=== PATIENT | female | born 1950 | race Caucasian/White ===

== ENCOUNTER 2020-05-17 16:21 | Inpatient (IN) | payer MEDICARE ==
--- NOTE | 2020-05-17 17:02 | ED ---
General Adult HPI - General Chief complaint: Neuro Symptoms/Deficit Stated complaint: Neuro Changes Time Seen by Provider: 05/17/20 16:25 Source: patient, RN notes reviewed, old records reviewed Mode of arrival: ambulatory Limitations: no limitations - History of Present Illness Initial comments: This is a 70-year-old female who presents emergency Department with a complaint of confusion this morning. Patient states she was unable to operate herself. Patient states she had no visual disturbance she denies any weakness of any extremity she denies any numbness. Patient states she has no inability to ambulate. Patient denies any facial drooping. Patient denies speech gums. Patient states she does have diabetes, high cholesterol. Patient states symptoms started about 8:00 this morning and they were completely resolved by 9:00. Patient states since then she's had no symptoms whatsoever. Patient denies any chest pain or palpitations. Patient denies any difficulty breathing shortness of breath. Patient denies any fever chills or cough per patient denies any abdominal pain patient denies nausea vomiting diarrhea. Patient denies any headache patient denies any lightheadedness or dizziness. - Related Data Home Medications Medication Instructions Recorded Confirmed Cholecalciferol [Vitamin D3 (25 125 mcg PO DAILY@79905/17/20 05/17/20 Mcg = 1000 Iu)] Citalopram Hydrobromide 20 mg PO DAILY@79905/17/20 05/17/20 [Citalopram HBr] Elderberry (Unknown Strength) 1 tab PO DAILY@79905/17/20 05/17/20 Famotidine [Pepcid] 20 mg PO BID@799,199905/17/20 05/17/20 Levothyroxine Sodium [Synthroid] 137 mcg PO DAILY@69905/17/20 05/17/20 Losartan [Cozaar] 50 mg PO DAILY@79905/17/20 05/17/20 Meloxicam 15 mg PO DAILY@79905/17/20 05/17/20 Vitamin C + Zinc (Unknown Strength) 1 tab PO DAILY@79905/17/20 05/17/20 sitaGLIPtin PHOS/metFORMIN HCL 1 tab PO BID@0800,199905/17/20 05/17/20 [Janumet 50-500 mg Tablet] Allergies Allergy/AdvReac Type Severity Reaction Status Date / Time No Known Allergies Allergy Verified 05/17/20 17:25 Review of Systems ROS Statement: Those systems with pertinent positive or pertinent negative responses have been documented in the HPI. ROS Other: All systems not noted in ROS Statement are negative. Past Medical History Past Medical History: Diabetes Mellitus, GERD/Reflux, Osteoarthritis (OA), Renal Disease, Thyroid Disorder Additional Past Medical History / Comment(s): allergies History of Any Multi-Drug Resistant Organisms: None Reported Past Surgical History: Cholecystectomy, Hysterectomy, Orthopedic Surgery Additional Past Surgical History / Comment(s): L leg, B carpal tunnel, toe amputation, parathyroid Past Psychological History: Anxiety Smoking Status: Former smoker Past Alcohol Use History: None Reported Past Drug Use History: None Reported General Exam - General Exam Comments Initial Comments: GENERAL: Patient is well-developed and well-nourished. Patient is nontoxic and well- hydrated and is in no acute distress. ENT: Neck is soft and supple. No significant lymphadenopathy is noted. Oropharynx is clear. Moist mucous membranes. Neck has full range of motion without eliciting any pain. EYES: The sclera were anicteric and conjunctiva were pink and moist. Extraocular movements were intact and pupils were equal round and reactive to light. Eyelids were unremarkable. PULMONARY: Unlabored respirations. Good breath sounds bilaterally. No audible rales rhonchi or wheezing was noted. CARDIOVASCULAR: There is a regular rate and rhythm without any murmurs gallops or rubs. ABDOMEN: Soft and nontender with normal bowel sounds. No palpable organomegaly was noted. There is no palpable pulsatile mass. SKIN: Skin is clear with no lesions or rashes and otherwise unremarkable. NEUROLOGIC: Patient is alert and oriented x3. Cranial nerves II through XII are grossly intact. Motor and sensory are also intact. Normal speech, volume and content. Symmetrical smile. MUSCULOSKELETAL: Normal extremities with adequate strength and full range of motion. LYMPHATICS: No significant lymphadenopathy is noted PSYCHIATRIC: Normal psychiatric evaluation. Limitations: no limitations Course Vital Signs 05/17/20 05/17/20 05/17/20 16:23 16:55 17:25 Temperature 98.6 F Pulse Rate 86 76 73 Respiratory 18 18 18 Rate Blood Pressure 138/79 114/63 131/64 O2 Sat by Pulse 93 L 97 96 Oximetry Medical Decision Making - Medical Decision Making EKG shows normal sinus rhythm at 77 bpm TN interval 242 QRS is 86 QT interval 392 QTC is 443. Patient's EKG shows no ST segment elevation or depression. Chest x-ray shows no acute abnormality. CT of brain shows no acute abnormality. Patient remained without symptoms throughout her ED stay. I spoke with Dr. Virgen he agreed to admit the patient admitted the patient I wrote admitting orders - Lab Data Result diagrams: 05/17/20 16:52 05/17/20 16:52 Lab Results 05/17/20 05/17/20 05/17/20 Range/Units 16:52 16:52 16:52 WBC 4.9 (3.8-10.6) k/uL RBC 4.31 (3.80-5.40) m/uL Hgb 11.7 (11.4-16.0) gm/dL Hct 36.5 (34.0-46.0) % MCV 84.6 (80.0-100.0) fL MCH 27.0 (25.0-35.0) pg MCHC 32.0 (31.0-37.0) g/dL RDW 15.1 (11.5-15.5) % Plt Count 91 L (150-450) k/uL MPV 7.8 Neutrophils % 71 % Lymphocytes % 20 % Monocytes % 6 % Eosinophils % 2 % Basophils % 0 % Neutrophils # 3.5 (1.3-7.7) k/uL Lymphocytes # 1.0 (1.0-4.8) k/uL Monocytes # 0.3 (0-1.0) k/uL Eosinophils # 0.1 (0-0.7) k/uL Basophils # 0.0 (0-0.2) k/uL PT 10.4 (9.0-12.0) sec INR 1.0 (<1.2) APTT 20.8 L (22.0-30.0) sec Sodium 140 (137-145) mmol/L Potassium 4.4 (3.5-5.1) mmol/L Chloride 103 (98-107) mmol/L Carbon Dioxide 27 (22-30) mmol/L Anion Gap 10 mmol/L BUN 21 H (7-17) mg/dL Creatinine 0.56 (0.52-1.04) mg/dL Est GFR (CKD-EPI)AfAm >90 (>60 ml/min/1.73 sqM) Est GFR (CKD-EPI)NonAf >90 (>60 ml/min/1.73 sqM) Glucose 128 H (74-99) mg/dL Calcium 9.5 (8.4-10.2) mg/dL Total Bilirubin 1.3 (0.2-1.3) mg/dL AST 44 H (14-36) U/L ALT 43 H (4-34) U/L Alkaline Phosphatase 78 (38-126) U/L Troponin I (0.000-0.034) ng/mL Total Protein 7.3 (6.3-8.2) g/dL Albumin 4.2 (3.5-5.0) g/dL 05/17/20 Range/Units 16:52 WBC (3.8-10.6) k/uL RBC (3.80-5.40) m/uL Hgb (11.4-16.0) gm/dL Hct (34.0-46.0) % MCV (80.0-100.0) fL MCH (25.0-35.0) pg MCHC (31.0-37.0) g/dL RDW (11.5-15.5) % Plt Count (150-450) k/uL MPV Neutrophils % % Lymphocytes % % Monocytes % % Eosinophils % % Basophils % % Neutrophils # (1.3-7.7) k/uL Lymphocytes # (1.0-4.8) k/uL Monocytes # (0-1.0) k/uL Eosinophils # (0-0.7) k/uL Basophils # (0-0.2) k/uL PT (9.0-12.0) sec INR (<1.2) APTT (22.0-30.0) sec Sodium (137-145) mmol/L Potassium (3.5-5.1) mmol/L Chloride (98-107) mmol/L Carbon Dioxide (22-30) mmol/L Anion Gap mmol/L BUN (7-17) mg/dL Creatinine (0.52-1.04) mg/dL Est GFR (CKD-EPI)AfAm (>60 ml/min/1.73 sqM) Est GFR (CKD-EPI)NonAf (>60 ml/min/1.73 sqM) Glucose (74-99) mg/dL Calcium (8.4-10.2) mg/dL Total Bilirubin (0.2-1.3) mg/dL AST (14-36) U/L ALT (4-34) U/L Alkaline Phosphatase (38-126) U/L Troponin I <0.012 (0.000-0.034) ng/mL Total Protein (6.3-8.2) g/dL Albumin (3.5-5.0) g/dL Disposition Clinical Impression: Transient cerebral ischemia Disposition: ADMITTED IP TO THIS HOSP Referrals: Nonstaff,Physician [Primary Care Provider] - 1-2 days Time of Disposition: 18:04
[2020-05-17 17:10] LABS: ALT 43 U/L (4-34); AST 44 U/L (14-36); African American GFR (CKD) >90 (>60 ml/min/1.73 sqM); Albumin 4.2 g/dL (3.5-5.0); Alkaline Phosphatase 78 U/L (38-126); Anion Gap 10 mmol/L; Blood Urea Nitrogen 21 mg/dL (7-17); Calcium 9.5 mg/dL (8.4-10.2); Carbon Dioxide 27 mmol/L (22-30); Chloride 103 mmol/L (98-107); Glucose 128 mg/dL (74-99); Non-African American GFR(CKD) >90 (>60 ml/min/1.73 sqM); Potassium 4.4 mmol/L (3.5-5.1); Sodium 140 mmol/L (137-145); Total Bilirubin 1.3 mg/dL (0.2-1.3); Total Protein 7.3 g/dL (6.3-8.2)
[2020-05-17 17:19] LABS: Basophils % (A) 0 %; Eosinophils # (A) 0.1 k/uL (0-0.7); Eosinophils % (A) 2 %; HCT 36.5 % (34.0-46.0); HGB 11.7 gm/dL (11.4-16.0); Lymphocytes % (A) 20 %; MCV 84.6 fL (80.0-100.0); Mean Platelet Volume 7.8; Monocytes # (A) 0.3 k/uL (0-1.0); Monocytes % (A) 6 %; Neutrophils # (A) 3.5 k/uL (1.3-7.7); Neutrophils % (A) 71 %; Prothrombin Time 10.4 sec (9.0-12.0); RBC 4.31 m/uL (3.80-5.40); RDW 15.1 % (11.5-15.5); WBC 4.9 k/uL (3.8-10.6)
[2020-05-17 17:22] LABS: Partial Thromboplastin Time 20.8 sec (22.0-30.0)
[2020-05-17 17:28] LABS: Platelet Count 91 k/uL (150-450)
--- NOTE | 2020-05-17 17:33 | XR ---
EXAMINATION TYPE: XR chest 2V DATE OF EXAM: 05/17/2020 COMPARISON: NONE HISTORY: Confusion memory loss TECHNIQUE: FINDINGS: Heart is normal. Lungs are clear of infiltrate. There is no heart failure. There is no pleu ral effusion. Bony thorax is intact. IMPRESSION: No active cardiopulmonary disease. Normal heart.
--- NOTE | 2020-05-17 17:50 | CT ---
EXAMINATION TYPE: CT brain wo con DATE OF EXAM: 05/17/2020 COMPARISON: None HISTORY: Weakness. CT DLP: 1110.4 mGycm Automated exposure control for dose reduction was used. Ventricles have normal size. There is no mass effect nor midline shift. There is no sign of intracran ial hemorrhage. The calvarium is intact. There is no evidence of cerebral edema. IMPRESSION: Negative CT scan of the brain.
[2020-05-17] MEDS ORDERED: ASPIRIN 325 MG TAB PO STA (18:04)
[2020-05-17] MEDS ORDERED: ACETAMINOPHEN TAB 500 MG TAB PO PRN (18:38)
[2020-05-17] MEDS ORDERED: ALPRAZolam 0.25 MG TAB PO PRN (18:38)
[2020-05-17] MEDS ORDERED: TEMAZEPAM 15 MG CAP PO PRN (18:39)
[2020-05-17] MEDS ORDERED: HYDROcodone/APAP 5-325MG 1 EACH TAB PO PRN (18:39)
[2020-05-17 19:44] LABS: Appearance,Urine Cloudy (Clear); Bacteria,Urine Occasional /hpf; Bilirubin,Urine Negative (Negative); Blood,Urine Negative (Negative); Color,Urine Yellow; Glucose,Urine (UA) Negative (Negative); Ketones,Urine Negative (Negative); Leukocyte Esterase,Urine Large (Negative); Mucus,Urine Occasional /hpf; Nitrite,Urine Negative (Negative); Protein,Urine Negative (Negative); Specific Gravity,Urine 1.024 (1.001-1.035); Squamous Epithelial Cell,Urine 5 /hpf (0-4); WBC,Urine 77 /hpf (0-5)
--- NOTE | 2020-05-17 19:46 | HP ---
HISTORY AND PHYSICAL DATE OF SERVICE: 05/17/2020. CHIEF COMPLAINT: Change in mental status. HISTORY OF PRESENT ILLNESS: This 70-year-old woman with a past medical history of multiple medical problems including diabetes mellitus, GERD, DJD, history of hypothyroidism, cholecystectomy, being followed by Dr. David Akhtar in [facility], was staying in a cottage here up [place]. Because her daughters are having Covid at this time, the patient was sort of on a self isolation and was keeping check on the daughter and today the patient has tried to text her the second time and the patient was unable to do it for at least 10 minutes. The patient had some confusion and because of the difficulties, the patient came to [facility] and was admitted for further evaluation and treatment. There is no history of fever, rigors. No history of headache, loss of consciousness or seizures at this time. PAST MEDICAL HISTORY: Diabetes, GERD, DJD, history of cholecystectomy, hysterectomy and anxiety. MEDICATIONS: Medications prior to admission: Home medications are: Levothyroxine, elderberry and cholecalciferol, meloxicam, losartan, Janumet, Pepcid, Celexa. ALLERGIES: None. FAMILY HISTORY: No history of heart disease or strokes in the family. SOCIAL HISTORY: Previous history of smoking. No history of alcohol intake. REVIEW OF SYSTEMS: ENT: No diminished vision. No diminished hearing. CARDIOVASCULAR: No angina. No palpitations. RESPIRATION: No cough or hemoptysis. GI no nausea or vomiting. no dysuria or hematuria. Nervous System: As mentioned earlier. ALLERGIES/IMMUNOLOGY: No asthma or hayfever. MUSCULOSKELETAL as mentioned earlier. HEMATOLOGY/ONCOLOGY: No history of anemia. ENDOCRINE: Diabetes. CONSTITUTIONAL: As mentioned earlier. DERMATOLOGY: Negative. RHEUMATOLOGY negative. PSYCHIATRY as mentioned earlier. PHYSICAL EXAM: Patient is alert, oriented x3. The pulse is 76, blood pressure 114/60, respiration 18, temperature 98.2, pulse ox 97% on room air. HEENT is conjunctivae normal. NECK: No JVD. CARDIOVASCULAR: S1, S2 muffled. RESPIRATION: Breath sounds diminished in the bases. No rhonchi. No crackles. ABDOMEN: Soft, nontender. No mass palpable. LEGS: No edema. No swelling. NERVOUS SYSTEM: Higher functions as mentioned earlier. Cranial nerves 2nd thru 12 grossly intact. No nystagmus. No diplopia. Otherwise, moves all 4 limbs. No focal weakness. No signs of cerebellar dysfunction. SKIN: No ulcer, rash or bleeding. JOINTS: No active deforming arthropathy. LABS: WBC 4.2, hemoglobin 11.7, platelets are 91. Glucose 128. AST is 44, ALT is 43. ASSESSMENT: 1. Brief period of confusion, possible acute transient ischemic attack. 2. Thrombocytopenia. 3. Increased AST/ALT, possibly hepatitis of undetermined etiology. 4. Diabetes mellitus type 2. 5. History of gastroesophageal reflux disease. 6. Degenerative joint disease. 7. History of renal disease. 8. History of hypothyroidism. 9. History of cholecystectomy. 10.History of hysterectomy. 11.History of anxiety. 12.Obesity with body mass index of 42.3. RECOMMENDATIONS AND DISCUSSION: This 70-year-old woman who presented with multiple complex medical issues, we will monitor the patient closely, continue the current medications, management and symptomatic treatment. I recommend antiplatelet agents, complete neurovascular workup, neuro checks and as well as neurology evaluation. Initial brain CT, which was reviewed personally by me showed no acute abnormalities. The prognosis guarded because of multiple complex medical issues. Further recommendations to follow. MMODL / IJN: [id number] /
[2020-05-17 20:28] LABS: Glucose,Whole Blood 97 mg/dL (75-99)
[2020-05-17] MEDS: ATORVASTATIN 40 MG TAB PO SCH (20:31)
[2020-05-17] MEDS: HEPARIN SODIUM,PORCINE 5,000 UNIT/ML 1 ML VIAL SQ SCH (20:32)
[2020-05-17] MEDS: metFORMIN 500 MG TAB PO SCH (20:32)
[2020-05-18 07:58] LABS: Glucose,Whole Blood 117 mg/dL (75-99)
[2020-05-18] MEDS: LEVOTHYROXINE 137 MCG TAB PO SCH (07:59)
[2020-05-18] MEDS: MELOXICAM 7.5 MG TAB PO SCH (07:59)
[2020-05-18] MEDS: ASCORBIC ACID 500 MG TAB PO SCH (08:00)
[2020-05-18] MEDS: PANTOPRAZOLE 40 MG TABLET PO SCH (08:00)
[2020-05-18] MEDS: LINAGLIPTIN 5 MG TABLET PO SCH (08:00)
[2020-05-18] MEDS: metFORMIN 500 MG TAB PO SCH ×2 (08:00→20:43)
[2020-05-18] MEDS: CHOLECALCIFEROL 25 MCG (1000 IU) TABLET PO SCH (08:00)
[2020-05-18] MEDS: CITALOPRAM HYDROBROMIDE 20 MG TAB PO SCH (08:00)
[2020-05-18] MEDS: ZINC SULFATE 220 MG CAP PO SCH (08:00)
[2020-05-18] MEDS: LOSARTAN 50 MG TAB PO SCH (08:00)
[2020-05-18] MEDS: ASPIRIN 325 MG TAB PO SCH (09:03)
[2020-05-18] MEDS: HEPARIN SODIUM,PORCINE 5,000 UNIT/ML 1 ML VIAL SQ SCH (09:03)
[2020-05-18 09:44] LABS: African American GFR (CKD) 112.1 (60.0-200.0); Albumin/Globulin Ratio 2.22 (1.60-3.17); Chol/HDL Ratio 2.67; Globulin 1.8 g/dL (1.6-3.3); LDL Cholesterol,Calculated 75.2 mg/dL (0.0-131.0); Non-African American GFR(CKD) 96.7 (60.0-200.0); Potassium 3.8 mmol/L (3.5-5.5); Total Bilirubin 1.5 mg/dL (0.3-1.2); Total Protein 5.8 g/dL (6.2-8.2); VLDL Calculation 19.8 mg/dL (5.00-40.00)
--- NOTE | 2020-05-18 10:35 | P.CNNES ---
History of Present Illness Consult date: 05/18/20 Requesting physician: Satinder Cannon Reason for Consult: confusion History of Present Illness: This is a 70-year-old woman with medical history of diabetes mellitus, hypothyroidism, osteoarthritis that presented to the emergency department on 05/17/2020 for an episode of confusion. Patient stated that that she was con fused early in the morning at around 8am on 05/17/2020 and that could not operate her full and lasting for 15-20 minutes. She didn't know how to dial or operate the phone. Then after 15-20 minutes the she is back to her normal state. During her confusion states she had a mild headache over the left frontal but she stated it was 2 out of 10 and the nothing significant. She denied any photophobia photophobia and nausea or vomiting. She denies any focal weakness during the episode, and any numbness or tingling, difficulty swallowing, difficulty getting her words out or ringing in the ears. She denies of any fevers, any cough or any chills. She stated that the she resides in [place] and she is visiting her daughter here in [place]. She said that she was exposed a friend in the last 1 week and a half to someone that has Covid-19 positive. But the patient feels she has no cough or chest pain or shortness of breath. Patient stated that during the episode of the confusion the she did not miss her breakfast since she is diabetic but she was not having any sweats. Note the patient denies any history of stroke or transient ischemic attack or seizure in the past that. She is not on any antiplatelet or statin. Workup in the hospital consisted of: Initial vitals his blood pressure of 138/79, heart rate of 86, respiratory rate of 18, temperature of 98.6 Fahrenheit and pulse ox of 93 by percent at room air. Since the patient has been the hospital the patient has been afebrile. CT of the head is reported as negative CT scan of the brain. EKG is reported as normal sinus rhythm. Left axis deviation. Inferior infarct, age undetermined. Abnormal EKG. Patient white blood cell is 4.9 which is within normal limits. The platelet is 91 which is low. Initial serum glucose is 128. AST is 44 and the ALT is 43 which is at which is slightly abnormal. Urinalysis shows that it's cloudy, leukocyte esterase was large, urine white blood cell is 77 and urine bacteria as occasional was seems is suggestive of urinary tract infection. Jeffery virus PCR is positive Review of Systems Review of system: The 12 point system was reviewed and apparent positive and negative per HPI. Past Medical History Past Medical History: Diabetes Mellitus, GERD/Reflux, Osteoarthritis (OA), Renal Disease, Thyroid Disorder Additional Past Medical History / Comment(s): allergies History of Any Multi-Drug Resistant Organisms: None Reported Past Surgical History: Cholecystectomy, Hysterectomy, Orthopedic Surgery Additional Past Surgical History / Comment(s): L leg, B carpal tunnel, toe amputation, parathyroid Past Anesthesia/Blood Transfusion Reactions: No Reported Reaction Past Psychological History: Anxiety, Depression Smoking Status: Former smoker Past Alcohol Use History: None Reported Past Drug Use History: None Reported Medications and Allergies Home Medications Medication Instructions Recorded Confirmed Type Cholecalciferol [Vitamin D3 (25 125 mcg PO DAILY@0800 05/17/20 05/17/20 History Mcg = 1000 Iu)] Citalopram Hydrobromide 20 mg PO DAILY@79905/17/20 05/17/20 History [Citalopram HBr] Elderberry (Unknown Strength) 1 tab PO DAILY@79905/17/20 05/17/20 History Famotidine [Pepcid] 20 mg PO BID@799,199905/17/20 05/17/20 History Levothyroxine Sodium [Synthroid] 137 mcg PO DAILY@69905/17/20 05/17/20 History Losartan [Cozaar] 50 mg PO DAILY@0805/17/20 05/17/20 History Meloxicam 15 mg PO DAILY@79905/17/20 05/17/20 History Vitamin C + Zinc (Unknown Strength) 1 tab PO DAILY@79905/17/20 05/17/20 History sitaGLIPtin PHOS/metFORMIN HCL 1 tab PO BID@799,199905/17/20 05/17/20 History [Janumet 50-500 mg Tablet] Allergies Allergy/AdvReac Type Severity Reaction Status Date / Time No Known Allergies Allergy Verified 05/17/20 17:25 Physical Examination - Vital Signs Vital Signs: Vital Signs Temp Pulse Pulse Resp BP BP Pulse Ox 05/18/20 07:51 98.1 F 84 14 128/75 94 L 02/02/21 05:30 97.7 F 81 15 118/67 96 05/18/20 03:05 97.7 F 81 15 105/65 96 05/18/20 01:05 97.7 F 73 15 101/53 96 05/17/20 23:05 97.4 F L 74 16 110/67 96 05/17/20 20:29 98.0 F 77 16 144/79 95 05/17/20 19:04 97.8 F 76 18 133/60 99 05/17/20 18:05 71 18 122/72 97 05/17/20 17:25 73 18 131/64 96 05/17/20 16:55 76 18 114/63 97 05/17/20 16:23 98.6 F 86 18 138/79 93 L Intake and Output 05/17/20 05/18/20 05/18/20 22:59 06:59 14:59 Other: Voiding Method Toilet # Voids 2 Weight 118.841 kg GENERAL: The patient is lying in bed and is not in acute distress. CHEST: The heart rate is regular rate rhythm. No murmurs to auscultation. No carotid bruit bilaterally. LUNG: Clear to auscultation bilaterally no wheezing noted throughout. Not labored breathing. ABDOMEN/GI: Bowel sounds present in all 4 quadrants. No tenderness to palpation throughout. NEUROLOGICAL: Higher mental function: The patient is awake, alert, oriented to self, place and time. Patient is following commands. No aphasia and no neglect. Cranial nerves: The pupils are round, equal and reactive to light and accommodation. Visual james are full to confrontation throughout. Extraocular movement is intact no nystagmus is noted. Facial sensation is normal to touch throughout. The facial strength is normal throughout. Hearing is normal srinivasa aterally to hand rub. Tongue is midline and moved [id number] without any difficulty. No dysarthria is noted. Shoulder shrug is normal bilaterally. Motor: The strength is 5 over 5 throughout. Normal tone and bulk. Cerebellum: Normal finger to nose heel to chin bilaterally. Sensation: Sensation is normal to touch throughout. Reflexes (right/left): 2+ throughout. Plantars are downgoing bilaterally. Results Coagulation study: PT is 10.4, INR 1.0 and PTT of 20.8. - Laboratory Findings CBC and BMP: 05/17/20 16:52 05/18/20 04:29 Abnormal Lab Findings: Abnormal Labs 05/17/20 05/17/20 05/17/20 16:52 16:52 16:52 Plt Count 91 L APTT 20.8 L BUN 21 H Glucose 128 H POC Glucose (mg/dL) AST 44 H ALT 43 H Urine Appearance Ur Leukocyte Esterase Urine WBC Ur Squamous Epith Cells Urine Bacteria Urine Mucus Coronavirus (PCR) 05/17/20 05/17/20 05/18/20 19:18 19:25 07:56 Plt Count APTT BUN Glucose POC Glucose (mg/dL) 117 H AST ALT Urine Appearance Cloudy H Ur Leukocyte Esterase Large H Urine WBC 77 H Ur Squamous Epith Cells 5 H Urine Bacteria Occasional H Urine Mucus Occasional H Coronavirus (PCR) Detected A Assessment and Plan Assessment: This is a 70-year-old woman that presented to the emergency department on 05/17/2020 for an episode of transient and confusion lasting 15-20 minutes on 05/17/2020 in the morning (having difficulty operating her phone) wihtout any other neurological problmes. Transient episode of confusion: Unsure exactly etiology. It could be due to the underlying patient urinary tract infection as well as COVID-19 infection (COVID- 19 positive) as well as component of toxic metabolic encephalopathy from elevated AST and ALT. Acute urinary tract infection Acute Covid 19 positive Thrombocytopenia Diabetes mellitus Hypothyroidism Osteoarthritis Plan: CT of the head is reported as negative CT scan of the brain. The patient was started on aspirin 325 daily by the ED team as well as was started on Lipitor 40 mg by the primary team. I cannot definitely state this was a transient ischemic attack. Transient confusion could be due to multiple effect and one of the possibility is underlying infection to such as urinary tra ct infection or a covid-19 infection. Lipid panel is ordered by the ED team I ordered carotid duplex and 2-D echo. Cannot get MRI because of the patient covert 19 positive. I ordered TSH, vitamin B12 and folate. I also ordered ammonia level. I ordered routine EEG and will not start anti-epileptic drug unless there is epileptiform discharges or seizure on EEG. Physical therapy, Occupation therapy, speech therapy are consulted by ED team. Defer the rest of the medical management to the primary team. I notified the patient upon discharge I would like her to follow-up with a neurologist within 2 weeks as outpatient. Thank you for the consultation. Randal Garland MD Neuro-Hospitalist Time with Patient: Greater than 30
[2020-05-18 10:39] LABS: Basophils # (A) 0.01 X 10*3/uL (0.00-0.10); Basophils % (A) 0.3 %; Eosinophils # (A) 0.07 X 10*3/uL (0.04-0.35); Eosinophils % (A) 2.2 %; HGB 9.9 g/dL (12.0-15.0); Lymphocytes % (A) 33.8 %; MCH 26.9 pg (27.0-32.0); MCV 89.7 fL (80.0-97.0); Mean Platelet Volume 11.4 fL (9.5-12.2); Monocytes # (A) 0.28 X 10*3/uL (0.20-1.00); Monocytes % (A) 8.6 %; Neutrophils # (A) 1.78 X 10*3/uL (1.80-7.70); Neutrophils % (A) 54.8 %; Platelet Count 89 X 10*3/uL (140-440); RBC 3.68 X 10*6/uL (4.10-5.20); RDW 14.7 % (11.5-14.5); WBC 3.25 X 10*3/uL (4.50-10.00)
[2020-05-18] MEDS: ENOXAPARIN 40 MG/0.4 ML SYRINGE SQ SCH (13:32)
[2020-05-18] MEDS: FAMOTIDINE 20 MG TAB PO SCH ×2 (13:32→20:43)
[2020-05-18] MEDS: dexAMETHasone 2 MG TAB PO SCH (13:33)
[2020-05-18 13:41] LABS: Glucose,Whole Blood 91 mg/dL (75-99)
--- NOTE | 2020-05-18 14:09 | CT ---
CT CHEST FOR PULMONARY EMBOLISM. EXAMINATION TYPE: CT angio chest DATE OF EXAM: 05/18/2020 INDICATION: elevated d-dimer CT DLP: 472.9 mGycm, Automated exposure control for dose reduction was used. CONTRAST: Patient injected with 100 mL of Isovue 370. COMPARISON: None TECHNIQUE: CT of the chest is performed on a spiral scan at 2 mm thick sections. Study is performed with intravenous contrast timed for evaluation for pulmonary embolism. This will limit additional po rtions of the evaluation. 3-D MIP images reconstructed by the technologist are reviewed on the compu ter in the coronal and sagittal planes. FINDINGS: No persistent filling defects are evident to suggest an acute pulmonary embolism. No mediastinal or hilar adenopathy enlarged by CT criteria is evident. The ascending aorta diameter at the level of the main pulmonary artery is 3.2 cm. The main pulmonary artery diameter at the bifur cation is 2.7 cm. Mild streak opacities are present, likely on the basis of atelectasis. Limited CT section through the upper abdomen are unremarkable. IMPRESSIONS: 1. No acute pulmonary embolism.
--- NOTE | 2020-05-18 14:38 | US ---
EXAMINATION TYPE: US carotid duplex BILAT DATE OF EXAM: 05/18/2020 COMPARISON: NONE CLINICAL HISTORY: tia. memory loss yesterday EXAM MEASUREMENTS: RIGHT: Peak Systolic Velocity (PSV) cm/sec ----- Right CCA: 91.8 ----- Right ICA: 83.6 ----- Right ECA: 118.0 ICA/CCA ratio: 0.9 RIGHT: End Diastole cm/sec ----- Right CCA: 21.3 ----- Right ICA: 15.6 ----- Right ECA: 7.4 LEFT: Peak Systolic Velocity (PSV) cm/sec ----- Left CCA: 75.4 ----- Left ICA: 78.0 ----- Left ECA: 80.6 ICA/CCA ratio: 1.0 LEFT: End Diastole cm/sec ----- Left CCA: 14.9 ----- Left ICA: 22.7 ----- Left ECA: 11.0 VERTEBRALS (direction of flow): Right Vertebral: Antegrade Left Vertebral: Antegrade Rhythm: Normal No plaque seen. Slight bilateral wall thickening. Grayscale, color Doppler, spectral Doppler imagi ng performed of the carotid arteries. Waveform analysis does not show significant stenosis of the int ernal carotid arteries. IMPRESSION: No hemodynamic significant stenosis of the proximal internal carotid arteries by Doppler criteria, an indirect measurement of carotid stenosis Criteria for Assigning % of Stenosis / Diameter reduction (Estimation based on the indirect measurements of the internal carotid artery velocities (ICA PSV). 1. Normal (no stenosis)=ICA PSV < 125 cm/s: ratio < 2.0: ICA EDV<40 cm/s. 2. Less than 50% stenosis=ICA PSV < 125 cm/s: ratio < 2.0: ICA EDV<40 cm/s. 3. 50 to 69% stenosis=ICA PSV of 125 to 230 cm/s: ration 2.0 ? 4.0: ICA EDV 40-100 cm/s. 4. Greater than 70% stenosis to near occlusion= ICA PSV > 230 cm/s: ratio > 4.0: ICA EDV > 100 cm/s. 5. Near occlusion= ICA PSV velocities may be low or undetectable: variable ratio and ICA EDV. 6. Total occlusion=unable to detect flow.
[2020-05-18 17:16] LABS: Glucose,Whole Blood 174 mg/dL (75-99)
--- NOTE | 2020-05-18 17:30 | PN ---
PROGRESS NOTE DATE OF SERVICE: 05/18/2020 This 70-year-old woman who was originally in [facility] was actually self- quarantining in a [place] near [place]. The patient's family has tested positive for COVID-19. The patient was complaining of some change in mental status. Patient was admitted for further evaluation. COVID-19 test was positive and the patient also had multiple elevated inflammatory markers. The patient also had features of UTI. D-dimer was also elevated at 0.60. A CT angio of the chest was done which I reviewed personally. It showed no evidence of any pulmonary embolism. The parenchyma did not show much of a pneumonic process; probably some mild atelectasis. Past medical history reviewed. REVIEW OF SYSTEMS: CARDIOVASCULAR SYSTEM: No angina, palpitations. RESPIRATORY SYSTEM: As mentioned earlier. GI: As mentioned earlier. : No dysuria or retention. NERVOUS SYSTEM: No numbness, weakness. CURRENT MEDICATIONS: Reviewed. They include Tylenol, [place], vitamin C, aspirin, Lipitor, Rocephin, vitamin D3. Doses are reviewed. PHYSICAL EXAMINATION: Patient is alert, oriented x3. Pulse 84, blood pressure 128/75, respiration 14, temperature 98.2, pulse ox 94% on room air. HEENT: Conjunctivae normal. NECK: No jugular venous distention. CARDIOVASCULAR SYSTEM: S1, S2 muffled. RESPIRATORY SYSTEM: Breath sounds diminished at the bases. A few scattered rhonchi. ABDOMEN: Soft, non-tender. NERVOUS SYSTEM: No focal deficit. LABS: WBC 3.5, hemoglobin 9.9, platelets 89. D-dimer is noted. Total bilirubin is 1.5. ASSESSMENT: 1. Brief period of confusion; possible acute transient ischemic attack. 2. Acute COVID-19 infection. 3. Elevated inflammatory markers. 4. Thrombocytopenia. 5. Mild pancytopenia. 6. Increased AST, ALT; possibly hepatitis. 7. Diabetes mellitus, type 2. 8. History of gastroesophageal reflux disease. 9. Degenerative joint disease. 10.History of renal disease. 11.History of hypothyroidism. 12.History of cholecystectomy. 13.History of hysterectomy. 14.History of anxiety. 15.Body mass index of 42.3 with obesity. RECOMMENDATIONS AND DISCUSSION: I recommend to continue current medications, continue with the monitoring, symptomatic treatment. Otherwise I would recommend a short course of dexamethasone and Lovenox. CT angio of the chest showed no evidence of pulmonary embolism. We will continue to monitor. Increase ambulation. Guarded prognosis. Further recommendations to follow. Discussed with the patient. SEBASTIAN / SCOTT: [id number] / SANTOS
[2020-05-18 20:41] LABS: Glucose,Whole Blood 205 mg/dL (75-99)
[2020-05-18] MEDS: ATORVASTATIN 40 MG TAB PO SCH (20:43)
--- NOTE | 2020-05-18 22:02 | CONS ---
CONSULTATION DATE OF SERVICE: 05/18/2020 REASON FOR CONSULTATION: Positive COVID test. HISTORY OF PRESENT ILLNESS: The patient is a 70-year-old female presenting to the ER last evening with concern about confusion and unable to use her phone to call her daughter. The patient said her symptoms lasted about 30 minutes, and then she recovered completely, did not have any other focal weakness or difficulty swallowing. With these symptoms, the patient presented to the hospital. The patient denies having any headache. No URI symptoms. No chest pain, shortness of breath or cough. No abdominal pain. No diarrhea. For these symptoms the patient was evaluated by the ER physician. The patient did have a chest x-ray that was reported negative for any acute cardiopulmonary process. CT of the brain was negative for any bleed. The patient is being currently worked up for a TIA. The patient did have a COVID test done which came back positive, and that prompted this infectious disease consultation. The patient did mention that she has been exposed to another person about 10 days ago while her kids constitution party and she was later on diagnosed with COVID. The patient currently denies having any chest pain or shortness of breath or cough. No nausea, no vomiting. No abdominal pain. She did have one episode of loose stools today. Denies having any problem with smell or taste. REVIEW OF SYSTEMS: Positive points have been mentioned in the HPI. Rest of the systems are negative. PAST MEDICAL HISTORY: Diabetes mellitus, gastroesophageal reflux disease, osteoarthritis, renal insufficiency, hypothyroidism. PAST SURGICAL HISTORY: Cholecystectomy, hysterectomy, bilateral carpal tunnel release, toe amputation. SOCIAL HISTORY: Remote history of smoking. No drinking or any drug use. FAMILY HISTORY: No pertinent findings noticed. ALLERGIES: NO KNOWN DRUG ALLERGIES. MEDICATIONS: The patient is currently on Rocephin, Celexa, dexamethasone, Lovenox, Pepcid, Synthroid, Tradjenta, Cozaar, Mobic, Glucophage, Protonix, Restoril, zinc, vitamin B1. PHYSICAL EXAMINATION: Her blood pressure 123/76, pulse 79, temperature 97.9. She is 94% on room air. General description is an elderly female lying in bed in no distress. No tachypnea or accessory muscle of respiration use. HEENT: Examination shows no pallor or scleral icterus. Oral mucous membrane is dry. NECK: Trachea is central. No thyromegaly. LUNGS: Clear to auscultation. No wheeze or crackle. HEART: S1, S2. Regular rate and rhythm. ABDOMEN: Soft. No tenderness. No guarding or rigidity. EXTREMITIES: No edema of the feet. SKIN EXAMINATION: No rash or mass palpable. Neurologically the patient is awake, alert, oriented x3. Mood and affect normal. LABS/IMAGING: Hemoglobin 9.9, white count 3.25. D-dimer was 0.60. The patient did not have any lymphopenia. BUN of 22, creatinine 0.5. Liver enzymes are normal. Chest x-ray report negative. CT angiogram did not show ground-glass opacity commonly seen with a COVID-19 infection. DIAGNOSTIC IMPRESSION AND PLAN: Patient with a positive COVID test, more likely representing a very mild illness in this patient who did have exposure more than 10 days ago, with her symptoms yesterday mostly neurological. She did not have respiratory symptoms and chest x-ray and CT did not show any pneumonia, and no significant hypoxemia, either. PLAN: 1. We will wait for the blood work ordered for the CRP, LDH and procalcitonin. 2. Patient started on dexamethasone, Lovenox, zinc; to continue. 3. No need for systemic antibiotic therapy. 4. Currently does not for remdesivir. 5. Will follow clinical condition and further adjust medication if needed. Thank you for this consultation. Will follow this patient along with you. MMODL / IJN: [id number] /
[2020-05-19 00:07] LABS: Glucose,Whole Blood 151 mg/dL (75-99)
[2020-05-19 00:25] LABS: C Reactive Protein <0.4 mg/dL (0.0-0.8)
[2020-05-19 00:36] LABS: LDH 152 U/L (120-246)
[2020-05-19 00:45] LABS: Ferritin 21.1 ng/mL (10.0-291.0)
[2020-05-19 07:05] LABS: Glucose,Whole Blood 127 mg/dL (75-99)
[2020-05-19] MEDS: ENOXAPARIN 40 MG/0.4 ML SYRINGE SQ SCH (07:35)
[2020-05-19] MEDS: MELOXICAM 7.5 MG TAB PO SCH (07:35)
[2020-05-19] MEDS: ZINC SULFATE 220 MG CAP PO SCH (07:36)
[2020-05-19] MEDS: dexAMETHasone 2 MG TAB PO SCH (07:36)
[2020-05-19] MEDS: FAMOTIDINE 20 MG TAB PO SCH ×2 (07:36→19:48)
[2020-05-19] MEDS: ASPIRIN 325 MG TAB PO SCH (07:36)
[2020-05-19] MEDS: CHOLECALCIFEROL 25 MCG (1000 IU) TABLET PO SCH (07:36)
[2020-05-19] MEDS: ASCORBIC ACID 500 MG TAB PO SCH (07:37)
[2020-05-19] MEDS: LINAGLIPTIN 5 MG TABLET PO SCH (07:37)
[2020-05-19] MEDS: PANTOPRAZOLE 40 MG TABLET PO SCH (07:37)
[2020-05-19] MEDS: metFORMIN 500 MG TAB PO SCH ×2 (07:37→19:49)
[2020-05-19] MEDS: LOSARTAN 50 MG TAB PO SCH (07:37)
[2020-05-19] MEDS: CITALOPRAM HYDROBROMIDE 20 MG TAB PO SCH (08:43)
[2020-05-19] MEDS: LEVOTHYROXINE 137 MCG TAB PO SCH (08:46)
[2020-05-19 09:14] LABS: Basophils # (A) 0.01 X 10*3/uL (0.00-0.10); Basophils % (A) 0.2 %; Eosinophils # (A) 0.01 X 10*3/uL (0.04-0.35); Eosinophils % (A) 0.2 %; HCT 33.8 % (37.2-46.3); HGB 10.5 g/dL (12.0-15.0); Lymphocytes # (A) 0.74 X 10*3/uL (0.90-5.00); Lymphocytes % (A) 18.4 %; MCH 27.3 pg (27.0-32.0); MCHC 31.1 g/dL (32.0-37.0); MCV 87.8 fL (80.0-97.0); Mean Platelet Volume 10.8 fL (9.5-12.2); Monocytes # (A) 0.24 X 10*3/uL (0.20-1.00); Neutrophils % (A) 74.7 %; Platelet Count 91 X 10*3/uL (140-440); RBC 3.85 X 10*6/uL (4.10-5.20); RDW 14.4 % (11.5-14.5); WBC 4.02 X 10*3/uL (4.50-10.00)
[2020-05-19 09:45] LABS: African American GFR (CKD) 105.5 (60.0-200.0); Albumin 4.3 g/dL (3.80-4.90); Albumin/Globulin Ratio 2.15 (1.60-3.17); Anion Gap 10.2 mmol/L (4.00-12.00); BUN/Creat Ratio 31.67 Ratio (12.00-20.00); Calcium 9.2 mg/dL (8.7-10.3); Carbon Dioxide 27.8 mmol/L (21.6-31.8); Non-African American GFR(CKD) 91.1 (60.0-200.0); Total Bilirubin 1.5 mg/dL (0.3-1.2); Total Protein 6.3 g/dL (6.2-8.2)
[2020-05-19 11:43] LABS: Glucose,Whole Blood 137 mg/dL (75-99)
[2020-05-19] MEDS: MULTIVITAMINS, THERA 1 EACH TAB PO SCH (12:39)
[2020-05-19] MEDS: FOLIC ACID 1 MG TAB PO SCH (12:39)
[2020-05-19] MEDS: THIAMINE 100 MG TAB PO SCH (12:39)
--- NOTE | 2020-05-19 13:21 | P.PN ---
Subjective Progress Note Date: 05/19/20 The patient is seen at bedside and she stated that the she has not had any further episodes of confusion or any difficulty with using the phone. She denies of any focal weakness, numbness, visual disturbance, difficulty getting her words out or swallowing. She denies of any headaches. Objective - Vital Signs Vital signs: Vital Signs Temp 98.1 F 05/19/20 10:00 Pulse 76 05/19/20 10:00 Resp 18 05/19/20 10:00 BP 112/70 05/19/20 10:00 Pulse Ox 97 05/19/20 10:00 Intake & Output 05/18/20 05/19/20 05/19/20 18:59 06:59 18:59 Intake Total 940 100 Balance 940 100 Intake: Intake, IV Titration 400 Amount cefTRIAXone 1 gm In 400 Sodium Chloride 0.9% 50 ml @ 100 mls/hr IVPB Q24HR [facility] Rx#:[id number] Oral 540 100 Other: Voiding Method Toilet Toilet # Voids 3 2 - Exam GENERAL: The patient is lying in bed and is not in acute distress. NEUROLOGICAL: Higher mental function: The patient is awake, alert, oriented to self, place and time. Patient is following commands. No aphasia and no neglect. Cranial nerves: The pupils are round, equal and reactive to light and accommodation. Visual james are full to confrontation throughout. Extraocular movement is intact no nystagmus is noted. Facial sensation is normal to touch throughout. The facial strength is normal throughout. Hearing is normal bilaterally to hand rub. Tongue is midline and moved [id number] without any difficulty. No dysarthria is noted. Shoulder shrug is normal bilaterally. Motor: The strength is 5 over 5 throughout. Normal tone and bulk. Cerebellum: Normal finger to nose heel to chin bilaterally. Sensation: Sensation is normal to touch throughout. Reflexes (right/left): 2+ throughout. Plantars are downgoing bilaterally. - Labs CBC & Chem 7: 05/19/20 05:35 05/19/20 05:35 Labs: Abnormal Lab Results - Last 24 Hours (Table) 05/18/20 05/18/20 05/18/20 Range/Units 10:45 17:14 20:39 WBC (4.50-10.00) X 10*3/uL RBC (4.10-5.20) X 10*6/uL Hgb (12.0-15.0) g/dL Hct (37.2-46.3) % MCHC (32.0-37.0) g/dL Plt Count (140-440) X 10*3/uL Lymphocytes # (0.90-5.00) X 10*3/uL Eosinophils # (0.04-0.35) X 10*3/uL BUN/Creatinine Ratio (12.00-20.00) Ratio Glucose (70-110) mg/dL POC Glucose (mg/dL) 174 H 205 H (75-99) mg/dL Total Bilirubin (0.3-1.2) mg/dL RBC Folate 859 H (280 - 791) ng/mL 05/19/20 05/19/20 05/19/20 Range/Units 00:04 05:35 05:35 WBC 4.02 L (4.50-10.00) X 10*3/uL RBC 3.85 L (4.10-5.20) X 10*6/uL Hgb 10.5 L (12.0-15.0) g/dL Hct 33.8 L (37.2-46.3) % MCHC 31.1 L (32.0-37.0) g/dL Plt Count 91 L (140-440) X 10*3/uL Lymphocytes # 0.74 L (0.90-5.00) X 10*3/uL Eosinophils # 0.01 L (0.04-0.35) X 10*3/uL BUN/Creatinine Ratio 31.67 H (12.00-20.00) Ratio Glucose 116 H (70-110) mg/dL POC Glucose (mg/dL) 151 H (75-99) mg/dL Total Bilirubin 1.5 H (0.3-1.2) mg/dL RBC Folate (280 - 791) ng/mL 05/19/20 05/19/20 Range/Units 07:03 11:42 WBC (4.50-10.00) X 10*3/uL RBC (4.10-5.20) X 10*6/uL Hgb (12.0-15.0) g/dL Hct (37.2-46.3) % MCHC (32.0-37.0) g/dL Plt Count (140-440) X 10*3/uL Lymphocytes # (0.90-5.00) X 10*3/uL Eosinophils # (0.04-0.35) X 10*3/uL BUN/Creatinine Ratio (12.00-20.00) Ratio Glucose (70-110) mg/dL POC Glucose (mg/dL) 127 H 137 H (75-99) mg/dL Total Bilirubin (0.3-1.2) mg/dL RBC Folate (280 - 791) ng/mL Assessment and Plan Assessment: This is a 70-year-old woman that presented to the emergency department on 05/17/2020 for an episode of transient and confusion lasting 15-20 minutes on 05/17/2020 in the morning (having difficulty operating her phone) wihtout any other neurological problmes. Transient episode of confusion: Unsure exactly etiology. It could be due to the underlying patient urinary tract infection as well as COVID-19 infection (COVID- 19 positive) as well as component of toxic metabolic encephalopathy from elevated AST and ALT. Low normal Vitamin B12 (285. Normal is 200-944). Acute urinary tract infection Acute Covid 19 positive Thrombocytopenia Diabetes mellitus Hypothyroidism Osteoarthritis Plan: CT of the head is reported as negative CT scan of the brain. The patient was started on aspirin 325 daily by the ED team as well as was started on Lipitor 40 mg by the primary team. I cannot definitely state this was a transient ischemic attack. Transient confusion could be due to multiple effect and one of the possibility is underlying infection to such as urinary tract infection or a covid-19 infection. Lipid panel: Triglyceride 99, cholesterol 152, LDL 75 and HDL of 57. Ccarotid duplex: As reported as no hemodynamic significant stenosis of the proximal internal carotid arteries by Doppler criteria, and in direct measurement of carotid stenosis. 2-D echo: pending. Cannot get MRI because of the patient covert 19 positive. vitamin B12: 285 is considered low normal. Because the patient has low normal vitamin and I will give the patient intramuscular vitamin B12 then the after that it's prior discharge will start her on vitamin B12 daily 1000mcg daily. TSH: 0.5 is considered normal. RBC Folate: 859 which is slightly above normal which is considered normal. Ammonia level: 12 (nomral). I ordered routine EEG and will not start anti-epileptic drug unless there is epileptiform discharges or seizure on EEG. Physical therapy, Occupation therapy, speech therapy are consulted by ED team. Defer the rest of the medical management to the primary team. I notified the patient upon discharge I would like her to follow-up with a neurologist within 2 weeks as outpatient. UPDATE: Routine EEG on 05/19/2020: Preliminary Report: Normal. There are no focal slowing, epileptiform discharge or seizure on EEG. Randal Garland MD Neuro-Hospitalist Time with Patient: Less than 30
--- NOTE | 2020-05-19 14:28 | P.CONS ---
History of Present Illness - Reason for Consult Consult date: 05/19/20 pancytopenia Requesting physician: Jordyn Mercado - Chief Complaint mental Status Changes - History of Present Illness Bridgette is a 70-year-old female who presented with confusion to the ER at [facility]. Medical history per patient includes diabetes, high cholesterol. During i nitial work-up she was found with mild thrombocytopenia Platelets 91K. Over her stay her WBC has mildly decreased today 4, Hemoglobin b10.5, platelets remaining 91K. No signs of bleeding. Further evaluation positive COVID Review of Systems All systems: negative Constitutional: Reports as per HPI Past Medical History Past Medical History: Diabetes Mellitus, GERD/Reflux, Osteoarthritis (OA), Renal Disease, Thyroid Disorder Additional Past Medical History / Comment(s): allergies History of Any Multi-Drug Resistant Organisms: None Reported Past Surgical History: Cholecystectomy, Hysterectomy, Orthopedic Surgery Additional Past Surgical History / Comment(s): L leg, B carpal tunnel, toe amput ation, parathyroid Past Anesthesia/Blood Transfusion Reactions: No Reported Reaction Past Psychological History: Anxiety, Depression Smoking Status: Former smoker Past Alcohol Use History: None Reported Past Drug Use History: None Reported Medications and Allergies Home Medications Medication Instructions Recorded Confirmed Type Cholecalciferol [Vitamin D3 (25 125 mcg PO DAILY@79905/17/20 05/17/20 History Mcg = 1000 Iu)] Citalopram Hydrobromide 20 mg PO DAILY@79905/17/20 05/17/20 History [Citalopram HBr] Elderberry (Unknown Strength) 1 tab PO DAILY@79905/17/20 05/17/20 History Famotidine [Pepcid] 20 mg PO BID@08,199905/17/20 05/17/20 History Levothyroxine Sodium [Synthroid] 137 mcg PO DAILY@69905/17/20 05/17/20 History Losartan [Cozaar] 50 mg PO DAILY@79905/17/20 05/17/20 History Meloxicam 15 mg PO DAILY@00 05/17/20 05/17/20 History sitaGLIPtin PHOS/metFORMIN HCL 1 tab PO BID@0800,199905/17/20 05/17/20 History [Janumet 50-500 mg Tablet] Acetaminophen Tab [Tylenol] 500 mg PO Q6HR PRN tab 05/19/20 Rx Ascorbic Acid [Vitamin C] 500 mg PO DAILY@0800 30 Days #30 05/19/20 Rx tab Aspirin 325 mg PO DAILY 30 Days #30 tab 05/19/20 Rx Atorvastatin [Lipitor] 40 mg PO HS 30 Days #30 tab 05/19/20 Rx Cefuroxime Axetil [Ceftin] 500 mg PO BID 5 Days #10 tab 05/19/20 Rx Folic Acid 1 mg PO DAILY@1200 30 Days #30 tab 05/19/20 Rx Multivitamins, Thera [Multivitamin 1 each PO DAILY@1200 30 Days #30 05/19/20 Rx (formulary)] tab Thiamine [Vitamin B-1] 100 mg PO DAILY@1200 30 Days #30 05/19/20 Rx tab Zinc Sulfate [Orazinc] 220 mg PO DAILY@0800 30 Days #30 05/19/20 Rx cap dexAMETHasone [Hexadrol] 6 mg PO DAILY 8 Days #24 tab 05/19/20 Rx Allergies Allergy/AdvReac Type Severity Reaction Status Date / Time No Known Allergies Allergy Verified 05/17/20 17:25 Physical Exam Vitals: Vital Signs Temp Pulse Pulse Resp BP BP Pulse Ox 05/19/20 10:00 98.1 F 76 18 112/70 97 05/19/20 05:45 97.6 F 74 20 103/63 96 05/19/20 02:00 97.7 F 61 20 106/61 96 05/19/20 00:00 97.7 F 72 20 136/74 91 L 05/18/20 20:00 97.9 F 75 17 114/71 94 L 05/18/20 15:36 97.9 F 79 14 123/76 94 L Intake and Output 05/18/20 05/19/20 05/19/20 22:59 06:59 14:59 Intake Total 940 100 Balance 940 100 Intake: Intake, IV Titration 400 Amount cefTRIAXone 1 gm In 400 Sodium Chloride 0.9% 50 ml @ 100 mls/hr IVPB Q24HR [facility] Rx#:[id number] Oral 540 100 Other: Voiding Method Toilet # Voids 3 2 GENERAL: Patient is well-developed and well-nourished. Nontoxic ENT: Neck supple. Moist mucous membranes. EYES: The sclera were anicteric and conjunctiva were pink and moist. PULMONARY: Mild increased effort and scattered expiratory wheezes CARDIOVASCULAR: There is a regular rate and rhythm without any murmurs gallops or rubs. ABDOMEN: Soft and nontender with normal bowel sounds. SKIN: No rashes or lesions, Pale NEUROLOGIC: Patient is alert and oriented x3. MUSCULOSKELETAL: Normal extremities with adequate strength LYMPHATICS: No significant lymphadenopathy is noted Results CBC & Chem 7: 05/19/20 05:35 05/19/20 05:35 Labs: Abnormal Lab Results - Last 24 Hours (Table) 05/18/20 05/18/20 05/18/20 Range/Units 10:45 17:14 20:39 WBC (4.50-10.00) X 10*3/uL RBC (4.10-5.20) X 10*6/uL Hgb (12.0-15.0) g/dL Hct (37.2-46.3) % MCHC (32.0-37.0) g/dL Plt Count (140-440) X 10*3/uL Lymphocytes # (0.90-5.00) X 10*3/uL Eosinophils # (0.04-0.35) X 10*3/uL BUN/Creatinine Ratio (12.00-20.00) Ratio Glucose (70-110) mg/dL POC Glucose (mg/dL) 174 H 205 H (75-99) mg/dL Total Bilirubin (0.3-1.2) mg/dL RBC Folate 859 H (280 - 791) ng/mL 05/19/20 05/19/20 05/19/20 Range/Units 00:04 05:35 05:35 WBC 4.02 L (4.50-10.00) X 10*3/uL RBC 3.85 L (4.10-5.20) X 10*6/uL Hgb 10.5 L (12.0-15.0) g/dL Hct 33.8 L (37.2-46.3) % MCHC 31.1 L (32.0-37.0) g/dL Plt Count 91 L (140-440) X 10*3/uL Lymphocytes # 0.74 L (0.90-5.00) X 10*3/uL Eosinophils # 0.01 L (0.04-0.35) X 10*3/uL BUN/Creatinine Ratio 31.67 H (12.00-20.00) Ratio Glucose 116 H (70-110) mg/dL POC Glucose (mg/dL) 151 H (75-99) mg/dL Total Bilirubin 1.5 H (0.3-1.2) mg/dL RBC Folate (280 - 791) ng/mL 05/19/20 05/19/20 Range/Units 07:03 11:42 WBC (4.50-10.00) X 10*3/uL RBC (4.10-5.20) X 10*6/uL Hgb (12.0-15.0) g/dL Hct (37.2-46.3) % MCHC (32.0-37.0) g/dL Plt Count (140-440) X 10*3/uL Lymphocytes # (0.90-5.00) X 10*3/uL Eosinophils # (0.04-0.35) X 10*3/uL BUN/Creatinine Ratio (12.00-20.00) Ratio Glucose (70-110) mg/dL POC Glucose (mg/dL) 127 H 137 H (75-99) mg/dL Total Bilirubin (0.3-1.2) mg/dL RBC Folate (280 - 791) ng/mL CT scan - chest: report reviewed Assessment and Plan (1) Normochromic anemia Current Visit: Yes Status: Acute Code(s): D64.9 - ANEMIA, UNSPECIFIED SNOMED Code(s): 22959270 (2) Pancytopenia Current Visit: Yes Status: Acute Code(s): D61.818 - OTHER PANCYTOPENIA SNOMED Code(s): 317836833 (3) COVID-19 Current Visit: Yes Status: Acute Code(s): U07.1 - COVID-19 SNOMED Code(s): 427186328 Plan: Assessment and recommendations: Pancytopenia: - This is likely secondary to inflammatory reaction from acute illness - COVID 19 - Will further assess for underlying deficiencies, hemolysis, and check electrophoresis and FLC - Ok to continue anticoagulation at this time, just keep platelets above 50k, periodically checking coags and d dimer - Transfuse hemoglobin less than 7 - B12 283 - will check MMA for deficiency. Physician Attest: I have completed the full history and physical and agree with above dictation, dictated as a scribe
[2020-05-19] MEDS: CYANOCOBALAMIN 1,000 MCG/ML 1 ML VIAL IM SCH (15:16)
[2020-05-19 16:58] LABS: Glucose,Whole Blood 192 mg/dL (75-99)
--- NOTE | 2020-05-19 18:11 | EEG ---
ELECTROENCEPHALOGRAM REPORT DATE OF SERVICE: 05/19/2020. CLINICAL HISTORY: This is a 70-year-old woman with an episode of confusion lasting 15-20 minutes on 05/17/2020. She is recently diagnosed with COVID-19. This video EEG is obtained to evaluate for seizure and epileptiform activity. RELEVANT MEDICATION: The patient is not on any antiepileptic drug. EEG TYPE: This EEG is done per ACNS guidelines for COVID-19 patients using the 10/20 electrode placement system. DESCRIPTION: Only wakefulness is obtained. During wakefulness, there is a posterior background rhythm of 8.5 to 9 hertz activity. There is no physiological stage II sleep over bilateral hemispheres. There is no focal slowing seen. Interictal and ictal: None. ACTIVATION PROCEDURE: Photic stimulation and hyperventilation are not performed because of COVID-19. CLINICAL INTERPRETATION: This is a normal routine EEG. There are no focal slowing, epileptiform discharges or seizure on the EEG. Clinical correlation is recommended. SEBASTIAN / KATHIN: [id number] / MTDD
--- NOTE | 2020-05-19 18:41 | PN ---
PROGRESS NOTE DATE OF SERVICE: 05/19/2020 This 70-year-old woman who was admitted with transient lapse in concentration also had COVID. The possibility of TIA is considered. Neurology has seen the patient. Neurovascular workup is in progress. Patient was started on dexamethasone, Lovenox and other medication. Dr. Toro of Infectious Disease is following the patient closely. The patient also had a UTI. The possibility of COVID and toxic metabolic encephalopathy is also considered by Dr. Garland. The patient also had mild pancytopenia, mostly thrombocytopenia, and Dr. Lopez has seen the patient from Hematology/Oncology. He has recommended continuing the current medications; electrophoresis and SLC was also recommended. Most likely pancytopenia could be related to COVID-19. Past medical history reviewed. REVIEW OF SYSTEMS: CARDIOVASCULAR SYSTEM: No angina, palpitations. RESPIRATORY SYSTEM: As mentioned earlier. GI: As mentioned earlier. : No dysuria or retention. NERVOUS SYSTEM: No numbness, weakness. CURRENT MEDICATIONS: Reviewed. They include Tylenol, [place], Xanax, vitamin C, aspirin, Lipitor, Rocephin, vitamin D3, Celexa, vitamin B12, Hexadrol, Lovenox. Pepcid, folic acid. PHYSICAL EXAMINATION: Patient is alert, oriented x3. Pulse 82, blood pressure 145/79, respiration 18, temperature 97.9, pulse ox 96% on room air. HEENT: Conjunctivae normal. NECK: No jugular venous distention. CARDIOVASCULAR SYSTEM: S1, S2 muffled. RESPIRATORY SYSTEM: Breath sounds diminished at the bases. No rhonchi. No crackles. ABDOMEN: Soft, non-tender. NERVOUS SYSTEM: No focal deficit. LABS: WBC 4.02, hemoglobin 10.5 and glucose 116. Total bilirubin is 1.5. ASSESSMENT: 1. Brief periodic confusion, possible acute transient ischemic attack or transient toxic encephalopathy secondary to COVID-19 or urinary tract infection. 2. Acute COVID-19 infection. 3. Acute urinary tract infection, present on admission. 4. Elevated inflammatory markers for COVID-19. 5. Thrombocytopenia. 6. Mild pancytopenia, possibly secondary to COVID-19. 7. Bibasilar atelectasis. 8. Increased AST, ALT, possibly mild hepatitis secondary to COVID-19. 9. Diabetes mellitus, type 2. 10.History of gastroesophageal reflux disease. 11.History of degenerative joint disease. 12.History of renal disease. 13.History of hypothyroidism. 14.History of cholecystectomy. 15.History of hysterectomy. 16.History of anxiety. 17.Body mass index 42.3 with obesity. RECOMMENDATIONS AND DISCUSSION: In this 70-year-old woman who presented with multiple complex medical issues, we will continue the monitoring, continue with empiric antibiotics, continue with Lovenox and dexamethasone other other medications, including zinc. The patient also had evidence of some atelectasis. I would recommend incentive spirometry. There is no evidence of pneumonia per se. The patient is also oxygenating well. We will continue to monitor. Repeat the platelets, which are at 91 at this time. The trend is 91, 89 and 91. Continue to monitor. Prognosis guarded. Discussed with the patient. Discussed with family. Further recommendations follow. MMLAIL / KATHIN: [id number] /
[2020-05-19] MEDS: ATORVASTATIN 40 MG TAB PO SCH (19:49)
--- NOTE | 2020-05-19 23:24 | PN ---
PROGRESS NOTE DATE OF SERVICE: 05/19/2020 REASON FOR FOLLOWUP: COVID-19 infection. INTERVAL HISTORY: The patient is currently afebrile. The patient is breathing comfortably, currently on room air, saturating 96%. Denies having any chest pain or shortness of breath. Minimal cough. No nausea, no vomiting or abdominal pain or diarrhea. PHYSICAL EXAMINATION: Blood pressure 113/67, pulse of 73, temperature 98.4. She is 96% on room air. General description is an elderly female up in the chair in no distress. RESPIRATORY SYSTEM: Unlabored breathing. Clear to auscultation anteriorly. HEART: S1, S2. Regular rate and rhythm. ABDOMEN: Soft. No tenderness. LABS: Hemoglobin is 10.5, white count 4.02, BUN of , creatinine 0.6. DIAGNOSTIC IMPRESSION AND PLAN: Patient with a positive COVID test with evidence of COVID-19 infection, very mild, in this patient with no need for supplemental oxygen therapy. Did support and not including antibiotics or steroids. She had multiple questions, and those have been answered in layman's terms. MMODL / IJN: [id number] /
[2020-05-20 02:26] VITALS: TEMP 98.2
[2020-05-20] MEDS: PANTOPRAZOLE 40 MG TABLET PO SCH (05:56)
[2020-05-20] MEDS: LEVOTHYROXINE 137 MCG TAB PO SCH (05:56)
[2020-05-20 06:08] VITALS: RESP 18
[2020-05-20 07:40] LABS: D-Dimer 0.5 mg/L FEU (<0.60); Partial Thromboplastin Time 21.3 sec (22.0-30.0); Prothrombin Time 10.7 sec (9.0-12.0)
[2020-05-20] MEDS: dexAMETHasone 2 MG TAB PO SCH (08:09)
[2020-05-20] MEDS: LINAGLIPTIN 5 MG TABLET PO SCH (08:09)
[2020-05-20] MEDS: ENOXAPARIN 40 MG/0.4 ML SYRINGE SQ SCH (08:09)
[2020-05-20] MEDS: metFORMIN 500 MG TAB PO SCH (08:09)
[2020-05-20] MEDS: CHOLECALCIFEROL 25 MCG (1000 IU) TABLET PO SCH (08:09)
[2020-05-20] MEDS: ZINC SULFATE 220 MG CAP PO SCH (08:09)
[2020-05-20] MEDS: LOSARTAN 50 MG TAB PO SCH (08:09)
[2020-05-20] MEDS: MELOXICAM 7.5 MG TAB PO SCH (08:09)
[2020-05-20] MEDS: FAMOTIDINE 20 MG TAB PO SCH (08:10)
[2020-05-20] MEDS: CITALOPRAM HYDROBROMIDE 20 MG TAB PO SCH (08:10)
[2020-05-20] MEDS: ASPIRIN 325 MG TAB PO SCH (08:10)
[2020-05-20] MEDS: ASCORBIC ACID 500 MG TAB PO SCH (08:10)
[2020-05-20 10:09] VITALS: BP 119/66; PULSE 71
[2020-05-20 11:18] LABS: Basophils # (A) 0.01 X 10*3/uL (0.00-0.10); Basophils % (A) 0.2 %; Eosinophils # (A) 0.01 X 10*3/uL (0.04-0.35); Eosinophils % (A) 0.2 %; HCT 32.3 % (37.2-46.3); HGB 9.9 g/dL (12.0-15.0); Lymphocytes # (A) 1.35 X 10*3/uL (0.90-5.00); MCH 27.2 pg (27.0-32.0); MCHC 30.7 g/dL (32.0-37.0); MCV 88.7 fL (80.0-97.0); Mean Platelet Volume 11.3 fL (9.5-12.2); Monocytes # (A) 0.29 X 10*3/uL (0.20-1.00); Monocytes % (A) 6.2 %; Neutrophils # (A) 2.98 X 10*3/uL (1.80-7.70); Platelet Count 84 X 10*3/uL (140-440); RBC 3.64 X 10*6/uL (4.10-5.20); RDW 14.5 % (11.5-14.5); Reticulocyte % 2.05 % (0.10-1.80); WBC 4.66 X 10*3/uL (4.50-10.00)
[2020-05-20 12:01] LABS: % Iron Saturation 11.7 (12.00-45.00); African American GFR (CKD) 105.5 (60.0-200.0); Albumin 4.2 g/dL (3.80-4.90); Albumin/Globulin Ratio 2.21 (1.60-3.17); Anion Gap 9.1 mmol/L (4.00-12.00); BUN/Creat Ratio 38.33 Ratio (12.00-20.00); Calcium 9.1 mg/dL (8.7-10.3); Carbon Dioxide 26.9 mmol/L (21.6-31.8); Globulin 1.9 g/dL (1.6-3.3); Non-African American GFR(CKD) 91.1 (60.0-200.0); Potassium 3.8 mmol/L (3.5-5.5); Total Protein 6.1 g/dL (6.2-8.2)
[2020-05-20] MEDS: FOLIC ACID 1 MG TAB PO SCH (12:20)
[2020-05-20] MEDS: CYANOCOBALAMIN 1,000 MCG/ML 1 ML VIAL IM SCH (12:20)
[2020-05-20] MEDS: THIAMINE 100 MG TAB PO SCH (12:20)
[2020-05-20] MEDS: MULTIVITAMINS, THERA 1 EACH TAB PO SCH (12:20)
[2020-05-20 12:23] LABS: Appearance,Urine Clear (Clear); Bilirubin,Urine Negative (Negative); Blood,Urine Negative (Negative); Color,Urine Yellow; Glucose,Urine (UA) Negative (Negative); Ketones,Urine Negative (Negative); Leukocyte Esterase,Urine Small (Negative); Mucus,Urine Rare /hpf; Nitrite,Urine Negative (Negative); Protein,Urine Negative (Negative); RBC,Urine 1 /hpf (0-5); Specific Gravity,Urine 1.014 (1.001-1.035); Squamous Epithelial Cell,Urine 1 /hpf (0-4); Urobilinogen,Urine <2.0 mg/dL (<2.0); WBC,Urine 5 /hpf (0-5)
[2020-05-20 12:23] LABS: Haptoglobin 94.6 mg/dL (31.2-198.0); Immunoglobulin M 92.9 mg/dL (40.0-280.0)
[2020-05-20 12:25] LABS: Folate, Serum 10.2 ng/mL
[2020-05-20 12:43] LABS: Free Kappa Lt Chain Qnt, Serum 1.61 mg/dL (0.33-1.94)
--- NOTE | 2020-05-20 14:35 | P.DS ---
Providers Date of admission: 05/18/20 12:42 Expected date of discharge: 05/20/20 Attending physician: Jordyn Mercado Consults: 05/17/20 18:05 Consult Physician Routine Consulting Provider: Randal Garland Consult Reason/Comments: TIA Do you want consulting provider notified?: Yes 05/18/20 12:14 Consult Physician Routine Consulting Provider: Ar Lopez Consult Reason/Comments: pancytopenia, covid Do you want consulting provider notified?: Yes 05/18/20 12:21 Consult Physician Routine Consulting Provider: Carlos Toro Consult Reason/Comments: covid Do you want consulting provider notified?: Yes Primary care physician: Physician Nonstaff Hospital Course: Final diagnosis Brief periodic confusion, possibly acute transient ischemic attack or transient toxic encephalopathy secondary to Covid 19 or urinary tract infection Acute Covid 19 infection Acute urinary tract infection, present on admission Elevated inflammatory markers for Covid 19 Thrombocytopenia Mild pancytopenia, possibly secondary to Covid 19 Bibasilar atelectasis Increased AST, ALT, possibly mild hepatitis secondary to Covid 19 Diabetes mellitus type 2 History of gastroesophageal reflux disease history of degenerative joint disease history of renal disease History of hypothyroidism history of cholecystectomy History of hysterectomy history of anxiety Obesity with a Body mass index 42.3 Discharge disposition Patient is being discharged in a stable condition with guarded prognosis to home. Patient will follow-up with her primary care provider in [place] upon discharge. Patient will continue with a short course of oral antibiotics in the form of Ceftin 500 mg twice daily for the next 3 days to complete the course. Will also continue on vitamin C, D, B12, and zinc supplements. Patient will also continue on dexamethasone to complete course. Patient to follow up with neurology when she follows up with her primary care provider in the outpatient setting. Total time taken is greater than 35 minutes. Hospital course This is a 70-year-old female who was recently admitted with transient lapse and concentration also Covid 19 and was being closely monitored. There was a possibility of a TIA being considered and neurology was consulted and evaluated the patient. Patient was initiated on dexamethasone along with Lovenox and vitamin supplements along with zinc. Patient was also seen and evaluated by infectious disease and outside of the window for Remdesivir. Patient was also found to have an acute urinary tract infection and was started on IV ceftriaxone and will continue with oral Ceftin 500 mg twice daily for the next 3 days to complete the course. She will continue dexamethasone along with vitamin supplements in the outpatient setting. Patient was found to have mild p ancytopenia, mostly thrombocytopenia and was seen and evaluated by hematology and recommending further workup in the outpatient setting. Patient mention that after reviewing her medical records from [place] her platelets have been found to be in the low 90's and this was discussed with hematology. Patient does reside and has a primary care provider in [place] and instructed to follow-up with them as she will be returning this week with her daughter there. Pancytopenia most likely related to Covid 19. Neurological workup has been negative and neurology Dr. Garland recommending outpatient neurology follow-up. Patient verbalized understanding. Currently no reports of chest pain, shortness of breath, or palpitations. Patient is afebrile. No reports of nausea or vomiting and patient is tolerating diet. Patient and family will further discuss palliative care in the outpatient setting. Guarded prognosis. On exam vital signs are stable. Temp is 98.2F, pulse is 71, respirations are 1 8, blood pressure is 119/66, oxygen saturation is 97% on room air. Cardio S1, S2 are muffled. Respiratory shows diminished breath sounds at the bases with no wheezing or rhonchi noted. Abdomen is soft, obese, and nontender. Nervous system shows no focal deficits. Please refer to medication reconciliation sheet for a list of medications. Patient Condition at Discharge: Stable Plan - Discharge Summary Discharge Rx Participant: Yes New Discharge Prescriptions: New Cefuroxime Axetil [Ceftin] 500 mg PO BID 5 Days #10 tab Folic Acid 1 mg PO DAILY@1200 30 Days #30 tab dexAMETHasone [Hexadrol] 6 mg PO DAILY 8 Days #24 tab Multivitamins, Thera [Multivitamin (formulary)] 1 each PO DAILY@1200 30 Days #30 tab Zinc Sulfate [Orazinc] 220 mg PO DAILY@0800 30 Days #30 cap Acetaminophen Tab [Tylenol] 500 mg PO Q6HR PRN tab PRN Reason: Fever And/ Or Pain Thiamine [Vitamin B-1] 100 mg PO DAILY@1200 30 Days #30 tab Ascorbic Acid [Vitamin C] 500 mg PO DAILY@0800 30 Days #30 tab Atorvastatin [Lipitor] 10 mg PO DAILY 30 Days #30 tab Apixaban [Eliquis] 5 mg PO BID 30 Days #60 tab Cyanocobalamin [Vitamin B-12] 1,000 mcg PO DAILY 30 Days #60 tablet Continue Cholecalciferol [Vitamin D3 (25 Mcg = 1000 Iu)] 125 mcg PO DAILY@0800 Meloxicam 15 mg PO DAILY@0800 Losartan [Cozaar] 50 mg PO DAILY@0800 sitaGLIPtin PHOS/metFORMIN HCL [Janumet 50-500 mg Tablet] 1 tab PO BID@08,1999 Levothyroxine Sodium [Synthroid] 137 mcg PO DAILY@0700 Famotidine [Pepcid] 20 mg PO BID@08,1999 Citalopram Hydrobromide [Citalopram HBr] 20 mg PO DAILY@0800 Elderberry (Unknown Strength) 1 tab PO DAILY@0800 Discontinued Vitamin C + Zinc (Unknown Strength) 1 tab PO DAILY@0800 Discharge Medication List Cholecalciferol [Vitamin D3 (25 Mcg = 1000 Iu)] 125 mcg PO DAILY@0800 05/17/20 [History] Citalopram Hydrobromide [Citalopram HBr] 20 mg PO DAILY@0805/17/20 [History] Elderberry (Unknown Strength) 1 tab PO DAILY@0805/17/20 [History] Famotidine [Pepcid] 20 mg PO BID@08,199905/17/20 [History] Levothyroxine Sodium [Synthroid] 137 mcg PO DAILY@0700 05/17/20 [History] Losartan [Cozaar] 50 mg PO DAILY@0800 05/17/20 [History] Meloxicam 15 mg PO DAILY@0800 05/17/20 [History] sitaGLIPtin PHOS/metFORMIN HCL [Janumet 50-500 mg Tablet] 1 tab PO BID@08,199905/17/20 [History] Acetaminophen Tab [Tylenol] 500 mg PO Q6HR PRN tab 05/19/20 [Rx] Ascorbic Acid [Vitamin C] 500 mg PO DAILY@0800 30 Days #30 tab 05/19/20 [Rx] Cefuroxime Axetil [Ceftin] 500 mg PO BID 5 Days #10 tab 05/19/20 [Rx] Folic Acid 1 mg PO DAILY@1200 30 Days #30 tab 05/19/20 [Rx] Multivitamins, Thera [Multivitamin (formulary)] 1 each PO DAILY@1200 30 Days #30 tab 05/19/20 [Rx] Thiamine [Vitamin B-1] 100 mg PO DAILY@1200 30 Days #30 tab 05/19/20 [Rx] Zinc Sulfate [Orazinc] 220 mg PO DAILY@0800 30 Days #30 cap 05/19/20 [Rx] dexAMETHasone [Hexadrol] 6 mg PO DAILY 8 Days #24 tab 05/19/20 [Rx] Apixaban [Eliquis] 5 mg PO BID 30 Days #60 tab 05/20/20 [Rx] Atorvastatin [Lipitor] 10 mg PO DAILY 30 Days #30 tab 05/20/20 [Rx] Cyanocobalamin [Vitamin B-12] 1,000 mcg PO DAILY 30 Days #60 tablet 05/20/20 [Rx] Follow up Appointment(s)/Referral(s): Nonstaff,Physician [Primary Care Provider] - 1-2 days Patient Instructions/Handouts: Coronavirus Disease 2019 (COVID-19), Urinary Tract Infection in Women (DC) Activity/Diet/Wound Care/Special Instructions: Activity Limited until follow-up Follow-up with primary care provider upon discharge Continue current diet Continue with antibiotics for the next 3 days until complete Encourage fluids and rest Encourage frequent stops during travel back to [place] Continue with compression hose Follow-up neurology outpatient Discharge Disposition: HOME SELF-CARE
--- NOTE | 2020-05-20 15:26 | PN ---
PROGRESS NOTE DATE OF SERVICE: 05/20/2020 REASON FOR FOLLOWUP: COVID-19 infection. INTERVAL HISTORY: The patient is currently afebrile. Patient is breathing comfortably. The patient denies having any chest pain, shortness of breath or cough. No abdominal pain. No diarrhea. No urinary symptoms. PHYSICAL EXAMINATION: Blood pressure is 119/66, pulse 71, temperature 98.2. She is 97% on room air. General description is an elderly female up in the bed in no distress. RESPIRATORY SYSTEM: Unlabored breathing, clear to auscultation with crackles. HEART: S1, S2. Regular rate and rhythm. ABDOMEN: Soft, no tenderness. LABS: Hemoglobin 9.9, white count 4.66, BUN of 20, creatinine 0.6. DIAGNOSTIC IMPRESSION AND PLAN: 1. Patient with acute COVID-19 infection, mild. In this patient with overall clinical improvement, there is no need for any specific therapy on discharge. She will not qualify for any steroids or any therapy. 2. Positive urine, but no specific urinary symptoms. Received 2-3 days of Rocephin more than enough, no need for antibiotic on discharge. MMODL / IJN: [id number] /
--- NOTE | 2020-05-20 17:17 | P.PN ---
Subjective Progress Note Date: 05/20/20 She was seen at bedside and she stated that she's feeling well. She denies any further episodes of difficulty of confusion. Denies of any weakness, numbness any headaches or any other neurological problems. Objective - Vital Signs Vital signs: Vital Signs Temp 98.2 F 05/20/20 08:00 Pulse 71 05/20/20 08:00 Resp 18 05/20/20 08:00 BP 119/66 05/20/20 08:00 Pulse Ox 97 05/20/20 08:00 Intake & Output 05/19/20 05/20/20 05/20/20 18:59 06:59 18:59 Intake Total 540 Balance 540 Intake: Oral 540 Other: Voiding Method Toilet # Voids 3 1 - Exam GENERAL: The patient is lying in bed and is not in acute distress. NEUROLOGICAL: Higher mental function: The patient is awake, alert, oriented to self, place and time. Patient is following commands. No aphasia and no neglect. Cranial nerves: The pupils are round, equal and reactive to light and accommodation. Visual james are full to confrontation throughout. Extraocular movement is intact no nystagmus is noted. Facial sensation is normal to touch throughout. The facial strength is normal throughout. Hearing is normal bilaterally to hand rub. Tongue is midline and moved [id number] without any difficulty. No dysarthria is noted. Shoulder shrug is normal bilaterally. Motor: The strength is 5 over 5 throughout. Normal tone and bulk. Cerebellum: Normal finger to nose heel to chin bilaterally. Sensation: Sensation is normal to touch throughout. Reflexes (right/left): 2+ throughout. Plantars are downgoing bilaterally. - Labs CBC & Chem 7: 05/20/20 05:55 05/20/20 05:55 Labs: Abnormal Lab Results - Last 24 Hours (Table) 05/20/20 05/20/20 05/20/20 Range/Units 05:55 05:55 05:55 RBC 3.64 L (4.10-5.20) X 10*6/uL Hgb 9.9 L (12.0-15.0) g/dL Hct 32.3 L (37.2-46.3) % MCHC 30.7 L (32.0-37.0) g/dL Plt Count 84 L (140-440) X 10*3/uL Eosinophils # 0.01 L (0.04-0.35) X 10*3/uL Retic Count 2.05 H (0.10-1.80) % APTT (22.0-30.0) sec BUN/Creatinine Ratio 38.33 H (12.00-20.00) Ratio Iron 44 L (50-170) ug/dL % Saturation 11.70 L (12.00-45.00) Total Protein 6.1 L (6.2-8.2) g/dL Total Protein (PEP) 6.0 L (6.2-8.2) g/dL Ur Leukocyte Esterase (Negative) Urine Mucus (None) /hpf 05/20/20 05/20/20 Range/Units 05:55 11:20 RBC (4.10-5.20) X 10*6/uL Hgb (12.0-15.0) g/dL Hct (37.2-46.3) % MCHC (32.0-37.0) g/dL Plt Count (140-440) X 10*3/uL Eosinophils # (0.04-0.35) X 10*3/uL Retic Count (0.10-1.80) % APTT 21.3 L (22.0-30.0) sec BUN/Creatinine Ratio (12.00-20.00) Ratio Iron (50-170) ug/dL % Saturation (12.00-45.00) Total Protein (6.2-8.2) g/dL Total Protein (PEP) (6.2-8.2) g/dL Ur Leukocyte Esterase Small H (Negative) Urine Mucus Rare H (None) /hpf Assessment and Plan Assessment: This is a 70-year-old woman that presented to the emergency department on 05/17/2020 for an episode of transient and confusion lasting 15-20 minutes on 05/17/2020 in the morning (having difficulty operating her phone) wihtout any other neurological problmes. Transient episode of confusion: Unsure exactly etiology. It could be due to the underlying patient urinary tract infection as well as COVID-19 infection (COVID- 19 positive) as well as component of toxic metabolic encephalopathy from elevated AST and ALT. Low normal Vitamin B12 (285. Normal is 200-944). Acute urinary tract infection Acute Covid 19 positive Thrombocytopenia Diabetes mellitus Hypothyroidism Osteoarthritis Plan: CT of the head is reported as negative CT scan of the brain. The patient was started on aspirin 325 daily by the ED team as well as was started on Lipitor 40 mg by the primary team. I cannot definitely state this was a transient ischemic attack. Transient confusion could be due to multiple effect and one of the possibility is underlying infection to such as urinary tract infection or a covid-19 infection. Lipid panel: Triglyceride 99, cholesterol 152, LDL 75 and HDL of 57. Ccarotid duplex: As reported as no hemodynamic significant stenosis of the proximal internal carotid arteries by Doppler criteria, and in direct surya urement of carotid stenosis. 2-D echo: pending. Cannot get MRI because of the patient covert 19 positive. vitamin B12: 285 is considered low normal. I placed the patient on vitamin B12 1000 g daily. TSH: 0.5 is considered normal. RBC Folate: 859 which is slightly above normal which is considered normal. Ammonia level: 12 (nomral). Routine EEG 05/19/2020: Normal. There are no epileptiform discharges or seizure on the EEG. Physical therapy, Occupation therapy, speech therapy are consulted by ED team. Defer the rest of the medical management to the primary team. I notified the patient upon discharge I would like her to follow-up with a neurologist within 2 weeks as outpatient. There is no further neurological work-up needed at this time. Randal Garland MD Neuro-Hospitalist Time with Patient: Less than 30
[2020-05-21 13:03] LABS: Albumin 3.46 g/dL (3.80-4.90); Gamma Globulin 0.76 g/dL (0.70-1.50)
== END 2020-05-20 15:43 | disposition home or self-care (01) | DRG 177 ==
LOC: EC 16:21 → 6NMEDSUR 18:08 → OBSVTOIN 05-18 12:42 → 4SSUR 05-19 00:03
PROVIDERS: ADMIT Hospitalist; ATTEND Hospitalist
DX: U07.1 COVID-19 (principal); G92 Toxic encephalopathy; Z68.41 Body mass index [BMI] 40.0-44.9, adult; G45.9 Transient cerebral ischemic attack, unspecified; D61.818 Other pancytopenia; J98.11 Atelectasis; N39.0 Urinary tract infection, site not specified; M19.90 Unspecified osteoarthritis, unspecified site; E66.9 Obesity, unspecified; E11.9 Type 2 diabetes mellitus without complications; E03.9 Hypothyroidism, unspecified; K75.9 Inflammatory liver disease, unspecified; E78.00 Pure hypercholesterolemia, unspecified; F41.9 Anxiety disorder, unspecified; K21.9 Gastro-esophageal reflux disease without esophagitis; R13.10 Dysphagia, unspecified; Z90.49 Acquired absence of other specified parts of digestive tract; Z79.899 Other long term (current) drug therapy; Z79.890 Hormone replacement therapy; Z87.891 Personal history of nicotine dependence; Z79.1 Long term (current) use of non-steroidal anti-inflammatories (NSAID); Z79.82 Long term (current) use of aspirin; Z90.710 Acquired absence of both cervix and uterus
CPT/HCPCS: 36415; 70450; 71046; 71275; 80053; 80061; 81001; 82140; 82607; 82728; 82746; 82747; 82784; 83010; 83540; 83550; 83615; 83883; 83921; 84145; 84165; 84443; 84484; 85025; 85045; 85379; 85610; 85730; 86140; 86334; 87635; 93005; 93306; 93880; 95816; 99285

== ENCOUNTER → 2021-11-30 | Outpatient (CLI) | payer MEDICARE ==
--- NOTE | 2021-11-30 11:34 | XR ---
EXAMINATION TYPE: XR knee limited bilateral DATE OF EXAM: 11/30/2021 COMPARISON: NONE HISTORY: Pain TECHNIQUE: Two views each knee submitted. FINDINGS: There is severe narrowing of the medial compartment of the knee joint bilaterally greater on the righ t. Hypertrophic spurring noted. No erosive changes. No acute fracture or dislocation. Severe hypertro phic arthropathy of the patellofemoral joint on the right with mild changes on the left. IMPRESSION: 1. Severe bilateral osteoarthritis greater on the right.
== END | disposition home or self-care (01) ==
LOC: RADXRMAIN 10:56
PROVIDERS: ATTEND Family Medicine
DX: M17.0 Bilateral primary osteoarthritis of knee (principal)

== ENCOUNTER → 2022-02-24 | Outpatient (CLI) | payer MEDICARE ==
--- NOTE | 2022-02-24 08:45 | US ---
EXAMINATION TYPE: US liver DATE OF EXAM: 02/24/2022 COMPARISON: NONE CLINICAL HISTORY: K74.60 CIRRHOSIS. Cirrhosis per order. Cholecystectomy. TECHNIQUE: Multiple sonographic images of the right upper quadrant are obtained. FINDINGS: EXAM MEASUREMENTS: Liver Length: 18.6 cm CBD: 0.92 cm Right Kidney: 11.9 x 5.5 x 5.3 cm QUALITY COMPLIANCE CONSULTANT NOTES: Limited due to gas and patient body habitus. Pancreas: Appears hyperechoic. Limited. Liver: Appears very heterogeneous and enlarged. Anechoic area seen left lobe: 0.8 x 0.7 x 0.5 cm. Com plex area seen right lobe: 2.1 x 2.9 x 2.7 cm. Gallbladder: Surgically absent. Evidence for sonographic Pollack's sign: No CBD: Appears wnl post cholecystectomy Right Kidney: No hydronephrosis or masses seen, limited. IMPRESSION: 1. hepatomegaly with underlying hepatic steatosis.
== END | disposition home or self-care (01) ==
LOC: RADUSWWP 07:59
PROVIDERS: ATTEND Internal Medicine
DX: K76.0 Fatty (change of) liver, not elsewhere classified (principal); R16.0 Hepatomegaly, not elsewhere classified
CPT/HCPCS: 76705

== ENCOUNTER → 2023-01-18 | Outpatient (CLI) | payer MEDICARE ==
[2023-01-18 16:50] LABS: ALT 24 U/L (8-44); AST 23 U/L (13-35); Albumin 4.5 d/dL (3.8-4.9); Albumin/Globulin Ratio 1.96 Ratio (1.60-3.17); Alkaline Phosphatase 67 U/L (41-126); Bilirubin, Conjugated 0.25 mg/dL (0.20-0.40); Bilirubin,Unconjugated 0.65 mg/dL (0.20-1.00); Blood Urea Nitrogen 22.5 mg/dL (9.0-27.0); Calcium 9.8 mg/dL (8.7-10.3); Carbon Dioxide 24.2 mmol/L (21.6-31.8); Chloride 106 mmol/L (96-109); Chol/HDL Ratio 2.78 Ratio; Globulin 2.3 d/dL (1.6-3.3); Glucose 116 mg/dL (70-110); LDL Cholesterol,Calculated 101.9 mg/dL (0.0-131.0); Potassium 5.1 mmol/L (3.5-5.5); Sodium 144 mmol/L (135-145); Total Bilirubin 0.9 mg/dL (0.3-1.2); Total Protein 6.8 d/dL (6.2-8.2); VLDL Calculation 14.64 mg/dL (5.00-40.00)
[2023-01-18 17:10] LABS: Basophils # (A) 0.02 X 10*3/uL (0.00-0.10); Basophils % (A) 0.5 %; Eosinophils # (A) 0.06 X 10*3/uL (0.04-0.35); Eosinophils % (A) 1.6 %; HCT 35.9 % (37.2-46.3); HGB 10.7 d/dL (12.0-15.0); Lymphocytes # (A) 0.97 X 10*3/uL (0.90-5.00); Lymphocytes % (A) 25.6 %; MCH 27.4 pg (27.0-32.0); MCHC 29.8 d/dL (32.0-37.0); MCV 91.8 FL (80.0-97.0); Mean Platelet Volume 11.5 FL (9.5-12.2); Monocytes % (A) 7.9 %; NRBC Per 100 WBC 0 X 10*3/uL (0.00-0.01); Neutrophils # (A) 2.43 X 10*3/uL (1.80-7.70); Neutrophils % (A) 64.1 %; Platelet Count 88 X 10*3/uL (140-440); RBC 3.91 X 10*6/uL (4.10-5.20); RDW 14.4 % (11.5-14.5); WBC 3.79 X 10*3/uL (4.50-10.00)
[2023-01-18 20:46] LABS: Hepatitis B Surface AB- Quant 3.5 mIU/mL; Hepatitis B Surface Antigen Nonreactive; Hepatitis C IgG Antibody Nonreactive
== END | disposition home or self-care (01) ==
LOC: LABWHC1 10:55
PROVIDERS: ATTEND Nurse Practitioner Family
DX: L40.0 Psoriasis vulgaris (principal)
CPT/HCPCS: 36415; 80048; 80061; 80076; 85025; 86480; 86704; 86706; 86803; 87340